=== PATIENT | male | born 1995 | race Caucasian/White ===

== ENCOUNTER 2017-12-27 19:19 | Emergency (ER) | payer OTHER ==
[~2017-12-27] VITALS: Ht 180.3 cm; Wt 114.8 kg
[2017-12-27] MEDS: ONDANSETRON HCL INJ 2 MG/ML VIAL IV STA (20:00)
[2017-12-27] MEDS: DIPHENHYDRAMINE HCL INJ 50 MG/ML VIAL IV ONE (20:00)
[2017-12-27] MEDS: SODIUM CHLORIDE 0.9% 1000ML 1,000 ML IV SCH (20:00)
[2017-12-27] MEDS: MORPHINE SULFATE 2 MG/ML SYR IV STA (20:00)
== END 2017-12-27 21:05 | disposition home or self-care (01) ==
LOC: FSED 19:19
DX: R51 Headache (principal)
CPT/HCPCS: 99283; J1200; J2270; J2405